=== PATIENT | female | born 1960 | race Caucasian/White ===

== ENCOUNTER 2016-06-20 12:26 | Emergency (ER) | payer MEDICARE, MEDICAID ==
--- NOTE | 2016-06-28 08:11 | ER ---
ADMIT: 06/20/2016 RM/LOC: ER [facility] MR#: [id number] [address] [facility] [address] [place], [place] [id number] ELISSA MALDONADO [address] [address] Emergency Room Report SEX: F AGE: 56 : 1960 DATE: 06/20/2016 HISTORY OF PRESENT ILLNESS: A 56-year-old, comes in with abdominal pain times several hours' duration, sudden onset, crampy. She has had diarrhea earlier, took some Imodium then developed pain. See T-sheet for remainder history and physical. A CT scan was unremarkable. CBC and CMP were likewise unremarkable. An ABG, however, revealed pH 7.35, a pCO2 of 44, and a pO2 of 49 at 82% on 6 L. The patient, however, did not appear to be in any distress or duress and stated that she was "breathing fine" that was not her problem, her abdominal pain was her problem. Again after she had a large emesis, she felt better, requested to go home. I did speak with her about her oxygen requirement, she said she felt fine. There was not any concern of hers and that she used oxygen at home as she felt that was needed. The patient was subsequently discharged. Again, there is concern about her oxygen requirements and her likely noncompliance with oxygen therapy. DISCHARGE DIAGNOSES: 1. Abdominal pain. 2. Likely chronic hypoxia secondary to pulmonary hypertension. Emmanuel Marcano MD/ modl JOB #: [id number] CC: Emmanuel Marcano MD, Attending Physician Lazaro Pickens MD, Family Physician
== END 2016-06-20 15:23 | disposition home or self-care (01) ==
LOC: ER 12:26
DX: R10.84 Generalized abdominal pain (principal); Z88.0 Allergy status to penicillin

== ENCOUNTER → 2016-06-25 | Outpatient (CLI) | payer MEDICARE, MEDICAID | END | disposition home or self-care (01) | LOC: RESC 06-06 14:59 → RAD.S 06-17 09:00 → RESC 06-17 09:00 → RAD.S 06-23 14:00 → RESC 06-24 13:00 → RAD.S 06-24 14:00 → RESC 13:00 | DX: I27.2 Other secondary pulmonary hypertension (principal); I51.7 Cardiomegaly ==

== ENCOUNTER 2016-08-23 17:15 | Emergency (ER) | payer MEDICARE, MEDICAID ==
--- NOTE | 2016-08-25 08:23 | ER ---
ADMIT: 08/23/2016 RM/LOC: ER [facility] MR#: [id number] [address] [facility] [address] [place], [place] [id number] ELISSA MALDONADO [address] [facility] [address] [place] [address] Emergency Room Report SEX: F AGE: 56 : 1960 DATE: 08/23/2016 TIME: 1715 hours. Please refer to my T-sheet for complete H and P. Briefly, the patient is a 56-year-old, who comes in with right hip pain, starts in her buttocks, goes down her leg, it has been there for a couple days. It hurts really bad when she gets up and moves around, but then it gets better. Denies any trauma. There are no other complaints. PHYSICAL EXAMINATION: VITAL SIGNS: Blood pressure 120/87, pulse 113, respirations 12, temp 97.9, and saturating 82% on room air. She says she always saturates in the 80s and 70s if she is not on her oxygen, she has no respiratory distress with this. HEENT: Grossly normal. ABDOMEN: Soft. EXTREMITIES: Her right buttock hurts right over sciatic outlet extending down in the sensory distribution. She has no weakness though. EMERGENCY DEPARTMENT COURSE: Uneventful, I had a long discussion, she was ready for discharge. ASSESSMENT: Right sciatica. PLAN: Continue the meloxicam. Return if worse. Avoid pressure on the area. I talked to her ways to do this, Ultram, they gave her a script for 21, and follow up with these. Gustabo Giles MD/ chayo JOB #: [id number] CC: Gustabo Giles MD, Attending Physician Lazaro Pickens MD, Family Physician
== END 2016-08-23 18:02 | disposition home or self-care (01) ==
LOC: ER 17:15
DX: M54.31 Sciatica, right side (principal); I27.2 Other secondary pulmonary hypertension; E11.9 Type 2 diabetes mellitus without complications; Z79.84 Long term (current) use of oral hypoglycemic drugs; Z79.899 Other long term (current) drug therapy; Z88.0 Allergy status to penicillin; Z88.8 Allergy status to other drugs, medicaments and biological substances; Z90.49 Acquired absence of other specified parts of digestive tract

== ENCOUNTER 2016-08-27 16:56 | Emergency (ER) | payer MEDICARE, MEDICAID ==
--- NOTE | 2016-08-31 09:03 | ER ---
ADMIT: 08/27/2016 RM/LOC: ER [facility] MR#: [id number] [address] [facility] [address] [place], [place] [address] ELISSA MALDONADO [address] [facility] [address] [place] [address] Emergency Room Report SEX: F AGE: 56 : 1960 CORRECTED: 08/29/2016 0601 DJS DATE: 08/27/2016 BRIEF ADDENDUM: Please see my T-sheet for complete review of systems, past medical history, and physical exam. CHIEF COMPLAINT: Not eating or drinking for 5 days. HISTORY OF PRESENT ILLNESS: A pleasant 56-year-old female, who presents to the ED with 5 days' duration of not being able to eat or drink. States she just does not feel like eating or drinking. Denies any abdominal pain. No vomiting, diarrhea, or fever. States she was in the ER on the , diagnosed with right-sided sciatica and treated with Ultram. She said she used medication for a while. Her pain improved. She has not been taking this for the past several days. States she is sleeping more. She is less active. She does not want to eat or drink and she is less social. Denies any pain. No chest pain, no cough, shortness of breath, constipation or problems urinating, sore throat, rash, swollen glands, headache, anxiety, or depression. States she is not sure what is going on. She just does not feel right. PAST MEDICAL HISTORY: Does have a past medical history of diabetes, pulmonary hypertension; hyperlipidemia; gallstones, status post cholecystectomy. She is chronically on 3 to 4 L of oxygen for chronic respiratory failure. COURSE IN THE EMERGENCY ROOM: PHYSICAL EXAMINATION: GENERAL: The patient was seen and examined. She is afebrile, nontoxic. She is in no acute distress. She is alert. She does have a flat affect. VITAL SIGNS: She is mildly tachycardic. She is on 4 L nasal cannula that is anywhere from 88% to 94% while in department tonight. NECK: Soft and supple. LUNGS: No respiratory distress. Breath sounds are equal bilaterally. She does have some faint wheezes in the bases. HEART: Regular rate and rhythm. No murmurs, gallops, or rubs. ABDOMEN: Soft, nontender. No CVA tenderness. SKIN: Warm and dry. EXTREMITIES: Nontender. No pedal edema. She is alert and oriented. Motor is equal in the upper and lower extremities. Sensation is intact. NEUROLOGICAL: She does have somewhat of a depressed mood. LABORATORY STUDIES: White count 6.7, hemoglobin 17.4, hematocrit 54.9, platelets 149. Sodium 139, potassium 3.8, BUN 23, glucose 243, creatinine 1.1, alkaline phosphatase 129, AST 18, ALT 15, CRP 2.94. UA shows 42 wbc's, 155 rbc's, 3+ leukocyte esterase, consistent with urinary tract infection. I did give her a liter bolus of normal saline today. She looks much improved. She is able to drink a Pepsi. States she is hungry, just does not quite know what sounds good at this point. She is comfortable going home. As she is homebound ADMIT: 08/27/2016 RM/LOC: ER [facility] MR#: [id number] [address] [place] [id number] ELISSA MALDONADO [address] [place] [address] Emergency Room Report SEX: F AGE: 56 : 1960 [address], I did phone a script into [facility] today to start Bactrim DS 1 tab p.o. b.i.d. for 5 days, I did give her, her first dose tonight in the department. IMPRESSION: 1. Acute cystitis. 2. Dehydration. 3. Chronic respiratory failure, on 4 L of oxygen. DISPOSITION: The patient was started on Bactrim DS 1 tab p.o. b.i.d. for 5 days. She will return home and rest. Increase fluids as tolerated. Continue home medications. Follow up with Dr. Pickens next week as she has a colonoscopy scheduled on with him. Questions sought and answered to the best of my ability to the patient's satisfaction. Discharged in stable condition. MYRNA Noland / Armando Byrd MD / chayo JOB #: [id number] CC: Gustabo Giles MD, Attending Physician Lazaro Pickens MD, Family Physician CORRECTED: 08/29/2016 0601 DJS
== END 2016-08-27 19:55 | disposition home or self-care (01) ==
LOC: ER 16:56
DX: N30.00 Acute cystitis without hematuria (principal); E86.0 Dehydration; J96.10 Chronic respiratory failure, unspecified whether with hypoxia or hypercapnia; E11.9 Type 2 diabetes mellitus without complications; E78.5 Hyperlipidemia, unspecified; Z99.81 Dependence on supplemental oxygen; Z90.49 Acquired absence of other specified parts of digestive tract; Z88.0 Allergy status to penicillin; Z88.8 Allergy status to other drugs, medicaments and biological substances; Z79.01 Long term (current) use of anticoagulants